=== PATIENT | female | born 1935 | race Caucasian/White ===

== ENCOUNTER → 2017-10-25 | Outpatient (CLI) | payer OTHER | END | disposition home or self-care (01) | LOC: C.PATHSPEC 17:16 → C.LABSPEC 17:16 | PROVIDERS: ATTEND Physician Assistant | DX: L82.0 Inflamed seborrheic keratosis (principal) ==

== ENCOUNTER 2024-12-10 16:42 | Inpatient (IN) ==
--- NOTE | 2024-12-10 17:04 | Emergency Department Note ---
Impression & Plan Dyspnea, Hypoxia, Pneumonia, Hyponatremia ED Provider Note ED Provider Note NAME: ANGELA HEALY AGE:89 SEX: Female : 1935 ARRIVES VIA: EMS INFORMANT: Patient ED PROVIDER(s): Liss Romero DO CHIEF COMPLAINT: Referred by PCP, hypoxia, shortness of breath HPI: This is an 89-year-old female referred to the emergency department after she presented to her primary care's office due to concern for 2 weeks of increased shortness of breath, cough, intermittent fevers. Patient states she did intermittently have fevers as high as 102 F at home but has not had fevers in several days. Patient states she has had a decreased appetite but no overt vomiting. She states her cough has been productive of a green sputum predominantly, no hemoptysis. She states she has had mild diarrhea, no melena or hematochezia. She denies any, abdominal pain. Patient states she feels more fatigued. Her shortness of breath is worse with any movement. She has had accompanying nasal congestion, rhinorrhea, and sore throat. She states she is also had chest heaviness and pressure additionally. Family member recently ill with a cold and she thought she was ill from that individual. Patient given neb in the office but states it didn't help her symptoms. PAST MEDICAL HISTORY:See Below PAST SURGICAL HISTORY:See Below FAMILY HISTORY:See Below SOCIAL HISTORY:See Below HOME MEDICATIONS:See Below ALLERGIES:See Below VITALS:See Below PHYSICAL EXAMINATION: GENERAL: alert, unwell appearing, well nourished, no distress, non-toxic EYE EXAM: normal conjunctiva, PERRL and EOM's grossly intact OROPHARYNX: no exudate, no erythema, lips, buccal mucosa, and tongue normal and mucous membranes are moist NECK: supple, no nuchal rigidity, no adenopathy, non-tender LUNGS: Decreased bilaterally to auscultation. Normal chest wall mechanics, no w/r/r, tachypnea and increased work of breathing HEART: no murmurs, S1 normal and S2 normal ABDOMEN: abdomen soft, non-tender, normo-active bowel sounds, no masses, no rebound or guarding. SKIN: no rashes, petechiae, orbruising UPPER EXTREMITIES: upper extremities are grossly normal. FROM, nml pulses b/l. LOWER EXTREMITIES: No pitting edema. FROM, nml pulses b/l. NEURO EXAM: Normal sensorium, cranial nerves II-XII grossly intact, normal speech, no facial droop,nogross weakness of arms, no gross weakness of legs. Gross sensation intact. No ataxia. Vital Signs: reviewed and remarkable Differential Diagnosis: pneumonia, bronchitis, COPD/Asthma exacerbation, pneumothorax, pulmonary embolism, congestive heart failure, acute coronary syndrome, as well as others were considered MEDICAL DECISION MAKING: This is an 89 yo female sent from PCP office due to concern for 2 weeks of URI symptoms, increased SOB, and sats in the 80s. She was tachypneic, hypoxic, and ill appearing an arrival. Labs drawn and sent, IV established, EKG and CXR performed and interpreted at bedside, and patient placed on telemetry. She was placed on an oxy mask and sats improved to the low 90's on 8 lpm and patient reported feeling improved. Patient started on IVF and after review of cxr given IV rocephin and oral azithro added for CAP. WBC of 18 but negative procal/lactic. Cultures sent a precaution. No hx of pna, asthma/copd, or aspiration. Viral swab negative additionally despite recent sick contact. Case discussed with the hospitalist team for additional evaluation and mgmt. VS stable throughout. SHe was changed to maintenance rate IVF after 1st bolus. She was noted to have hyponatremia additionally, likely secondary to infection as well as dehydration and decreased intake. Consultation(s): 1844: Discussed with Dr. Reveles, [facility] hospitalist team, for additional evaluation and management. ER Treatment Provided: See below Diagnostics Interpreted By Me: -ECG: Normal sinus 97, left axis, normal intervals, no acute ST/T wave changes -Cardiac Monitoring: An order was placed for continuous cardiac monitoring. The monitor shows a rate of 88 with normal sinus rhythm. -Laboratory studies: As stated above and show below. -Imaging studies: cxr: no cm, RLL infiltrate noted, no wide mediastinum, no pneumothorax Triage Nursing Note Reviewed Prior/Outside Records Reviewed Past Med/Surg History Problem List (Updated 12/10/24 @ 22:47 by Varsha Lu PA-C) Dehydration Hypokalemia Hyponatremia (Acute) Pneumonia (Acute) Hypoxia (Acute) Dyspnea (Acute) Acute respiratory failure with hypoxia Abnormal thyroid function test Rectal bleeding Routine health maintenance Encounter for screening for osteoporosis Screening for deficiency anemia Screening for diabetes mellitus BCC (basal cell carcinoma of skin) (Acute) Cataract (Acute) Cervical spondylosis (Acute) Cyst of kidney, acquired (Acute) Hemorrhoids (Acute) Hyperlipidemia (Acute) Lentigines (Acute) Neoplasm of uncertain behavior of skin (Acute) Osteopenia (Acute) Radiculopathy (Acute) Seborrheic keratosis (Acute) Medical History History of SCC (squamous cell carcinoma) of skin History of basal cell carcinoma Rectal hemorrhage Surgical History History of hysterectomy History of cataract surgery Family History Family/Other No problems noted. Son Family history of melanoma Denies family history of Ovarian cancer Prostate cancer Myocardial infarction Breast cancer Colorectal cancer Social History Smoking Status: Never smoker Tobacco Type: Cigarettes Age Started Using Tobacco: 16; Age Quit Using Tobacco: 49; packs per day: 0.5; Cigarettes Per Day: 10; Second Hand Exposure: No; Do You Dip or Chew Tobacco: No; Hx Alcohol Use: Yes Alcohol type: wine Alcohol Intake Frequency: 2-3 x/Week Hx Substance Use: No Preferred Language: Ecuadorean Communication Ability: Effective Visual Impairment: Limited Hearing Ability: Normal Probation Worker Required: No Beliefs That Will Affect Care: None marital status: / Current Living Situation: Family Current Living Situation Comment: lives w/ son & daughter in law current occupational status: retired How many Children do You have: 2 Other Information That Helps Us Care for You: No Feels Safe at Home: Yes Safety Concerns: Feels Safe At This Time Childhood Exposure to Second-Hand Smoke: No Diet: regular caffeine: Yes during the past year weight has: remained stable Dental Care, Regularly: Yes Physical Activity Frequency: Does not Exercise Seatbelt Use: always Sunscreen Use: Yes (Sometimes) Do you think of yourself as: straight/heterosexual Sexual Activity: has been sexually active, but not for at least 12 months Gender Identity: Female Assistive Devices: Cane Allergies Allergies Allergy/AdvReac Type Severity Reaction Status Date / Time diphenhydramine Allergy Unknown HIVES Verified 12/10/24 14:26 Home Meds Home Medications Medication Instructions Recorded Confirmed vitamin E (dl, acetate) 90 mg (200 90 mg PO DAILY 12/10/24 12/10/24 unit) capsule Previous Rx's Medication Instructions Recorded ascorbic acid (vitamin C) 500 mg 500 mg PO DAILY #30 caps 07/16/19 capsule calcium 600 mg (as carbonate)-vit 1 tab PO BID #60 tabs 07/16/19 D3 20 mcg (800 unit) chewable tablet (Caltrate plus D) cholecalciferol (vitamin D3) 50 2,000 units PO DAILY #30 tabs 07/16/19 mcg (2,000 unit) tablet coenzyme Q10 10 mg capsule 10 mg PO DAILY #90 caps 07/16/19 [id number] C-Mn 1 cap PO BID #60 caps 07/16/19 capsule (Glucosamine-Chondroitin Complex capsule) magnesium oxide 400 mg PO DAILY #30 caps 07/16/19 mecobalamin (vitamin B12) 1,000 1,000 mcg sublingual DAILY #30 tabs 07/16/19 mcg disintegrating tablet,sublingual red yeast rice 600 mg capsule 1,200 mg (2 x 600 mg) PO DAILY #30 07/16/19 caps selenium 200 mcg tablet 200 mcg PO DAILY #30 tabs 07/16/19 albuterol sulfate 90 mcg/actuation 2 puff inhalation Q6H PRN 12/10/24 aerosol inhaler shortness of breath or wheezing #8.5 grams azithromycin 250 mg tablet See Rx Instructions PO .COMPLEX #6 12/10/24 tabs prednisone 10 mg tablet 40 mg (4 x 10 mg) PO DAILY 7 days 12/10/24 #28 tabs Results & Data (ED) Vital Signs Vital Signs - 24 hr 12/10/24 18:00 12/10/24 18:03 12/10/24 18:03 Pulse Rate Pulse Rate [Left] 90 Pulse Rate from SpO2 Sensor Respiratory Rate 19 Blood Pressure 143/92 H 143/92 H Blood Pressure [Left Arm] 143/92 H Blood Pressure Mean 112 112 Blood Pressure Mean [Left Arm] 109 Pulse Oximetry 97 Oxygen Delivery Method Oxymask Oxygen Flow Rate 7 12/10/24 18:12 12/10/24 18:30 12/10/24 18:30 Pulse Rate 88 Pulse Rate [Left] Pulse Rate from SpO2 Sensor 88 Respiratory Rate 30 H Blood Pressure 143/85 H 143/85 H Blood Pressure [Left Arm] Blood Pressure Mean 128 128 Blood Pressure Mean [Left Arm] Pulse Oximetry 95 Oxygen Delivery Method Oxygen Flow Rate 12/10/24 18:30 12/10/24 19:00 12/10/24 19:30 Pulse Rate 85 80 Pulse Rate [Left] 79 Pulse Rate from SpO2 Sensor 80 Respiratory Rate 18 24 24 Blood Pressure 143/85 H 148/83 H Blood Pressure [Left Arm] 147/85 H Blood Pressure Mean 104 108 Blood Pressure Mean [Left Arm] 105 Pulse Oximetry 94 93 93 Oxygen Delivery Method Oxymask Room Air Oxygen Flow Rate 7 Laboratory Data 12/11/24 05:45 12/11/24 05:45 Lab Results 12/10/24 12/10/24 12/10/24 Range/Units 16:53 17:00 17:15 WBC 18.81 H (4.8-10.8) K/ul RBC 4.18 L (4.20-5.40) M/uL Hgb 13.0 (12.0-16.0) g/dl Hct 36.0 L (37.0-47.0) % MCV 86.1 (80.0-100.0) fL MCH 31.1 (25.0-34.0) pg MCHC 36.1 H (32.0-36.0) g/dL RDW Std Deviation 41.1 (36.4-46.3) fL RDW Coeff of Spencer 13.1 (11.5-14.5) % Plt Count 372 (130-400) K/uL MPV 8.8 L (9.4-12.4) fL Immature Gran % (Auto) 1.0 % Neut % (Auto) 87.0 % Lymph % (Auto) 4.4 % Cocke % (Auto) 7.5 % Eos % (Auto) 0.0 % Baso % (Auto) 0.1 % Neut # (Auto) 16.36 H (1.40-6.50) K/uL Lymph # (Auto) 0.83 L (1.20-3.40) K/uL Cocke # (Auto) 1.42 H (0.11-0.59) K/uL Eos # (Auto) 0.00 (0.00-0.50) K/uL Baso # (Auto) 0.02 (0.00-0.20) K/uL Immature Gran # (Auto) 0.18 (0.01-0.20) K/uL VBG pH 7.41 (7.36-7.41) VBG pCO2 43 (38-50) mmHg VBG pO2 24 mmHg VBG HCO3 27 mmol/L VBG O2 Saturation < 60.0 % VBG Base Excess 2.2 mEq/L Sodium 126 L (136-145) mmol/L Potassium 3.4 L (3.5-5.1) mmol/L Chloride 87 L (98-107) mmol/L Carbon Dioxide 28 (21-32) mmol/L Anion Gap 11 (3-11) BUN 13 (6-23) mg/dl Creatinine 0.59 L (0.6-1.2) mg/dl Est Cr Clr Drug Dosing 58.7 ml/min eGFR 86.09 BUN/Creatinine Ratio 22.0 H (10-20) Glucose 117 H (70-99(Fasting)) mg/dl Osmolality 260 L (280-300) mOsm/kg Lactate 0.8 (0.4-2.0) mmol/L Calcium 9.2 (8.6-10.3) mg/dl Magnesium 1.8 (1.7-2.4) mg/dl Total Bilirubin 1.0 (0.2-1.0) mg/dl Direct Bilirubin 0.3 H (0-0.2) mg/dl AST 32 (13-39) U/L ALT 37 (7-52) U/L Alkaline Phosphatase 110 H (34-104) U/L Troponin I High Sens 13.3 (0-14) pg/ml Total Protein 7.7 (6.0-8.3) gm/dl Albumin 3.2 L (3.4-5.0) gm/dl Procalcitonin 0.20 (0-0.5) ng/ml TSH 0.231 L (0.300-4.500) uIu/ml Free T4 2.48 H (0.61-1.60) ng/dl Urine Color Urine Appearance (Clear) Urine pH (4.5-7.5) Ur Specific Tabor (1.000-1.030) Urine Protein (Negative) Urine Glucose (UA) (Negative) Urine Ketones (Negative) Urine Blood (Negative) Urine Nitrite (Negative) Urine Bilirubin (Negative) Urine Urobilinogen (Negative) Ur Leukocyte Esterase (Negative) Urine WBC (Auto) (0-5) /hpf Urine RBC (Auto) (0-2) /hpf U Hyaline Cast (Auto) (0-2) /lpf U Epithel Cells (Auto) (0-2) /hpf Urine Bacteria (Auto) (None Seen) Urine Osmolality (500-800) mOsm/kg Ur Random Sodium mmol/L Urine Comment Nasal Screen MRSA (PCR) (Negative) Adenovirus (PCR) Not Detected (NotDetected) B. pertussis DNA (PCR) Not Detected (NotDetected) B.parapertussis DNA PCR Not Detected (NotDetected) C. pneumoniae DNA (PCR) Not Detected (NotDetected) Coronavirus OC43 (PCR) Not Detected (NotDetected) Coronavirus HKU1 (PCR) Not Detected (NotDetected) Coronavirus 229E (PCR) Not Detected (NotDetected) SARS-CoV-2 (PCR) Not Detected (NotDetected) Coronavirus NL63 (PCR) Not Detected (NotDetected) Human Metapneumovir PCR Not Detected (NotDetected) Influenza Type A (PCR) Not Detected (NotDetected) Influenza Type B (PCR) Not Detected (NotDetected) M. pneumoniae (PCR) Not Detected (NotDetected) Parainfluenza 1 (PCR) Not Detected (NotDetected) Parainfluenza 2 (PCR) Not Detected (NotDetected) Parainfluenza 3 (PCR) Not Detected (NotDetected) Parainfluenza 4 (PCR) Not Detected (NotDetected) RSV (PCR) Not Detected (NotDetected) Entero/Rhino (PCR) Not Detected (NotDetected) 12/10/24 12/10/24 Range/Units 19:36 19:40 WBC (4.8-10.8) K/ul RBC (4.20-5.40) M/uL Hgb (12.0-16.0) g/dl Hct (37.0-47.0) % MCV (80.0-100.0) fL MCH (25.0-34.0) pg MCHC (32.0-36.0) g/dL RDW Std Deviation (36.4-46.3) fL RDW Coeff of Spencer (11.5-14.5) % Plt Count (130-400) K/uL MPV (9.4-12.4) fL Immature Gran % (Auto) % Neut % (Auto) % Lymph % (Auto) % Cocke % (Auto) % Eos % (Auto) % Baso % (Auto) % Neut # (Auto) (1.40-6.50) K/uL Lymph # (Auto) (1.20-3.40) K/uL Cocke # (Auto) (0.11-0.59) K/uL Eos # (Auto) (0.00-0.50) K/uL Baso # (Auto) (0.00-0.20) K/uL Immature Gran # (Auto) (0.01-0.20) K/uL VBG pH (7.36-7.41) VBG pCO2 (38-50) mmHg VBG pO2 mmHg VBG HCO3 mmol/L VBG O2 Saturation % VBG Base Excess mEq/L Sodium (136-145) mmol/L Potassium (3.5-5.1) mmol/L Chloride (98-107) mmol/L Carbon Dioxide (21-32) mmol/L Anion Gap (3-11) BUN (6-23) mg/dl Creatinine (0.6-1.2) mg/dl Est Cr Clr Drug Dosing ml/min eGFR BUN/Creatinine Ratio (10-20) Glucose (70-99(Fasting)) mg/dl Osmolality (280-300) mOsm/kg Lactate (0.4-2.0) mmol/L Calcium (8.6-10.3) mg/dl Magnesium (1.7-2.4) mg/dl Total Bilirubin (0.2-1.0) mg/dl Direct Bilirubin (0-0.2) mg/dl AST (13-39) U/L ALT (7-52) U/L Alkaline Phosphatase (34-104) U/L Troponin I High Sens (0-14) pg/ml Total Protein (6.0-8.3) gm/dl Albumin (3.4-5.0) gm/dl Procalcitonin (0-0.5) ng/ml TSH (0.300-4.500) uIu/ml Free T4 (0.61-1.60) ng/dl Urine Color Yellow Urine Appearance Clear (Clear) Urine pH 6.0 (4.5-7.5) Ur Specific Tabor 1.006 (1.000-1.030) Urine Protein Negative (Negative) Urine Glucose (UA) Negative (Negative) Urine Ketones Trace H (Negative) Urine Blood 1+ H (Negative) Urine Nitrite Negative (Negative) Urine Bilirubin Negative (Negative) Urine Urobilinogen Negative (Negative) Ur Leukocyte Esterase Trace H (Negative) Urine WBC (Auto) 0-5 (0-5) /hpf Urine RBC (Auto) 0-2 (0-2) /hpf U Hyaline Cast (Auto) 0-2 (0-2) /lpf U Epithel Cells (Auto) 0-2 (0-2) /hpf Urine Bacteria (Auto) None Seen (None Seen) Urine Osmolality 155 L (500-800) mOsm/kg Ur Random Sodium 11 mmol/L Urine Comment Nasal Screen MRSA (PCR) Negative (Negative) Adenovirus (PCR) (NotDetected) B. pertussis DNA (PCR) (NotDetected) B.parapertussis DNA PCR (NotDetected) C. pneumoniae DNA (PCR) (NotDetected) Coronavirus OC43 (PCR) (NotDetected) Coronavirus HKU1 (PCR) (NotDetected) Coronavirus 229E (PCR) (NotDetected) SARS-CoV-2 (PCR) (NotDetected) Coronavirus NL63 (PCR) (NotDetected) Human Metapneumovir PCR (NotDetected) Influenza Type A (PCR) (NotDetected) Influenza Type B (PCR) (NotDetected) M. pneumoniae (PCR) (NotDetected) Parainfluenza 1 (PCR) (NotDetected) Parainfluenza 2 (PCR) (NotDetected) Parainfluenza 3 (PCR) (NotDetected) Parainfluenza 4 (PCR) (NotDetected) RSV (PCR) (NotDetected) Entero/Rhino (PCR) (NotDetected) Administered Medications Enoxaparin Sodium (Enoxaparin Inj 40 Mg/0.4 Ml Syr) 40 mg SQ Q24H IVAN Stop: 01/09/25 21:01 Last Admin: 12/10/24 21:33 Dose: 40 mg Documented By: TYLER Guaifenesin (Guaifenesin 600 Mg Tabcr) 1,200 mg PO Q12 IVAN Stop: 01/09/25 21:01 Last Admin: 12/11/24 09:11 Dose: 1,200 mg Documented By: Admin: 12/10/24 21:33 Dose: 1,200 mg Documented By: TYLER Ceftriaxone Sodium (Rocephin) 2,000 mg in 50 mls @ 100 mls/hr IV Q24H IVAN Stop: 12/16/24 16:59 Last Admin: 12/11/24 17:45 Dose: 100 mls/hr Documented By: ODALIS Azithromycin (Zithromax) 500 mg in 255 mls @ 127.5 mls/hr IV Q24H IVAN Stop: 12/16/24 16:59 Last Admin: 12/11/24 17:45 Dose: 127.5 mls/hr Documented By: ODALIS Discontinued Medications Azithromycin (Azithromycin 250 Mg Tab) 500 mg PO NOW ONE Stop: 12/10/24 18:12 Last Admin: 12/10/24 18:13 Dose: 500 mg Documented By: JOAQUINA Sodium Chloride (Nss) 1,000 mls @ 999 mls/hr IV .Q1H1M IVAN Stop: 12/10/24 18:00 Last Infusion: 12/10/24 18:14 Dose: Infused Documented By: Admin: 12/10/24 17:06 Dose: 999 mls/hr Documented By: JOAQUINA Ceftriaxone Sodium (Rocephin) 2,000 mg in 50 mls @ 100 mls/hr IV NOW STA Stop: 12/10/24 17:50 Last Infusion: 12/10/24 18:08 Dose: Infused Documented By: Admin: 12/10/24 17:26 Dose: 100 mls/hr Documented By: JOAQUINA Sodium Chloride (Nss) 1,000 mls @ 125 mls/hr IV .Q8H IVAN Stop: 12/11/24 11:44 Last Admin: 12/11/24 03:44 Dose: 125 mls/hr Documented By: Infusion: 12/11/24 03:44 Dose: Infused Documented By: Admin: 12/10/24 20:06 Dose: 125 mls/hr Documented By: THOR Potassium Chloride (K Chris / Wtr) 10 meq in 100 mls @ 100 mls/hr IV Q1H IVAN Stop: 12/10/24 22:44 Last Infusion: 12/10/24 23:35 Dose: Infused Documented By: Admin: 12/10/24 22:33 Dose: 100 mls/hr Documented By: Infusion: 12/10/24 22:32 Dose: Infused Documented By: Admin: 12/10/24 21:32 Dose: 100 mls/hr Documented By: Infusion: 12/10/24 21:32 Dose: Infused Documented By: Admin: 12/10/24 20:06 Dose: 100 mls/hr Documented By: THOR Magnesium Sulfate/Dextrose (Magnesium Sulfate / D5w) 1 gm in 100 mls @ 50 mls/hr IV ONE ONE Stop: 12/10/24 21:33 Last Infusion: 12/10/24 22:07 Dose: Infused Documented By: Admin: 12/10/24 20:06 Dose: 50 mls/hr Documented By: THOR Sodium Chloride (Nss) 1,000 mls @ 75 mls/hr IV .[id number] IVAN Stop: 12/11/24 17:26 Last Admin: 12/11/24 14:16 Dose: 75 mls/hr Documented By: ODALIS Discharge Plan Visit Data Chief Complaint: Shortness of Breath/Dyspnea Stated Complaint: SOB, COUGH ED Provider: Liss Romero Discharge Problem: Dyspnea, Hypoxia, Pneumonia, Hyponatremia Patient Disposition: Admitted As Inpatient Condition: Fair Discharge Instructions Interventions: ED Discharge Assessment Last Done: 12/10/24 20:34
[2024-12-10] MEDS: SODIUM CHLORIDE 0.9% 1,000 ML IV SCH ×2 (17:06→20:06)
[2024-12-10 17:09] LABS: Base Excess VBG 2.2 mEq/L; HCO3 VBG 27 mmol/L; Oxygen Saturation VBG < 60.0 %; PCO2 VBG 43 mmHg (38-50); PO2 VBG 24 mmHg; pH VBG 7.41 (7.36-7.41)
[2024-12-10 17:15] LABS: Basophils # (auto) 0.02 K/uL (0.00-0.20); Basophils % (auto) 0.1 %; Immature Granulocytes # (auto) 0.18 K/uL (0.01-0.20); Lymphocytes # (auto) 0.83 K/uL (1.20-3.40); Lymphocytes % (auto) 4.4 %; Mean Corpuscular Hemoglobin 31.1 pg (25.0-34.0); Mean Corpuscular Hgb Conc 36.1 g/dL (32.0-36.0); Mean Corpuscular Volume 86.1 fL (80.0-100.0); Mean Platelet Volume 8.8 fL (9.4-12.4); Monocytes # (auto) 1.42 K/uL (0.11-0.59); Monocytes % (auto) 7.5 %; Neutrophils # (auto) 16.36 K/uL (1.40-6.50); Platelet Count 372 K/uL (130-400); RDW Coefficient of Variation 13.1 % (11.5-14.5); RDW Standard Deviation 41.1 fL (36.4-46.3); Red Blood Count 4.18 M/uL (4.20-5.40); White Blood Count 18.81 K/ul (4.8-10.8)
[2024-12-10] MEDS: cefTRIAXone SODIUM 2,000 MG/50 ML BAG IV STA (17:26)
[2024-12-10 17:33] LABS: Albumin Level 3.2 gm/dl (3.4-5.0); Bilirubin Direct 0.3 mg/dl (0-0.2); Calcium 9.2 mg/dl (8.6-10.3); Creatinine Clr Calc Pharmacy 58.7 ml/min; Magnesium 1.8 mg/dl (1.7-2.4); Potassium 3.4 mmol/L (3.5-5.1); Total Protein 7.7 gm/dl (6.0-8.3)
[2024-12-10 17:38] LABS: Troponin I High Sensitivity 13.3 pg/ml (0-14)
[2024-12-10 18:10] LABS: Adenovirus PCR Not Detected (NotDetected); Bordetella parapertussis PCR Not Detected (NotDetected); Bordetella pertussis PCR Not Detected (NotDetected); Chlamydia pneumoniae PCR Not Detected (NotDetected); Coronavirus 229E PCR Not Detected (NotDetected); Coronavirus CoV-2 (COVID19)PCR Not Detected (NotDetected); Coronavirus HKU1 PCR Not Detected (NotDetected); Coronavirus NL63 PCR Not Detected (NotDetected); Coronavirus OC43PCR Not Detected (NotDetected); Human Metapneumovirus PCR Not Detected (NotDetected); Influenza A PCR Not Detected (NotDetected); Influenza B PCR Not Detected (NotDetected); Mycoplasma pneumoniae PCR Not Detected (NotDetected); Parainfluenza Virus 1 PCR Not Detected (NotDetected); Parainfluenza Virus 2 PCR Not Detected (NotDetected); Parainfluenza Virus 3 PCR Not Detected (NotDetected); Parainfluenza Virus 4 PCR Not Detected (NotDetected); Respiratory Syncytial VirusPCR Not Detected (NotDetected); Rhinovirus/Enterovirus PCR Not Detected (NotDetected)
[2024-12-10] MEDS: AZITHROMYCIN 250 MG TAB PO ONE (18:13)
--- NOTE | 2024-12-10 19:12 | History & Physical Report ---
Date of Service December 10, 2024 Assessment & Plan (1) Pneumonia: (2) Hypoxia: (3) Hyponatremia: (4) Hypokalemia: (5) Dehydration: Plan Patient is an 89-year-old female without significant past medical history. Patient presented with, dyspnea, stool, weakness fevers, diarrhea and was found to have right lower lobe pneumonia and to be 85% on room air. She presented to her PCP earlier today found oxygen level to be mid 80s on room air and then referred her to the ED. She is being admitted for IV antibiotics, intermittent hypoxia. She is also found to have significant electrolyte abnormalities, K+ 3.4, mag 1.8, NA 126. #PNA/hypoxia - CXR showed RLL and suspected LLL PNA. Patient on 7 L oxy mask at time of admission, RR stable (24), able to talk, not in significant distress. Significant leukocytosis with white count 18.81 and neutrophil predominance, however not septic as vital signs relatively stable, procalcitonin 0.20, lactate 0.8. Bio fire negative. VBG WNL. - continue Rocephin + azithromycin IV - MRSA swab ordered, will add MRSA coverage if positive - blood cultures and sputum cultures obtained prior to abx - incentive spirometry and flutter valve - Tessalon Perles and Tylenol as needed - scheduled Mucinex - oxygen prn for O2 <94%, wean as tolerated - monitor on tele #Electrolyte abnormalities/dehydration - appears dry at bedside, with poor PO and diarrhea x several weeks. K+ 3.4, magnesium 1.8, NA 126. Urine osmole, serum osmole, urine NA ordered - TSH ordered - nss @ 125/ml x2l - 3 bags k rider - 1 bag IV mag + continue daily mag supplement - promote oral hydration - repeat BMP 0000 12/11 - trend BMP and mag with am labs #weakness suspect 2/2 infection and electrolyte abnormalities above - tsh ordered Aspiration and fall precautions PT/OT ordered VTE ppx: Lovenox 40mg q24h Dispo: PCU Admission and Anticipated Discharge Date Admission Date: 12/10/24 History of Present Illness Chief Complaint: dyspnea Primary Care Provider: Beatris Sanches MD Patient is an 89-year-old female without significant past medical history. Patient presented with, dyspnea, stool, weakness fevers, diarrhea and was found to have right lower lobe pneumonia and to be 85% on room air. She presented to her PCP earlier today found oxygen level to be mid 80s on room air and then referred her to the ED. She is being admitted for IV antibiotics, intermittent hypoxia. She is also found to have significant electrolyte abnormalities, K+ 3.4, mag 1.8, NA 126. Patient seen at bedside with her son present. She lives with her son at home. She stated over the holidays "" she traveled to [place] with her family for her grandsons graduation when her [id number] was sick with a cough and patient began with symptoms shortly after. She has had 2 weeks of fatigue, weakness, dyspnea, feeling like something heavy is sitting on her chest, green sputum producing cough. She does not use any oxygen at baseline, denies any past history of asthma or COPD. Her son reported that he took her temperature several days, and it was 104 F. Patient states she has also had diarrhea off and on for several weeks but she thinks it secondary to eating a bunch of small tangerines. She denies any hematochezia or melena, she does have noted history of rectal bleeding. Patient states she also has had poor p.o. intake for several weeks due to feeling sick and food just not tasting well. She denies any significant smoking history. She does not use any oxygen at [facility]. Overall medications consist of supplements, which she has not taken in several days due to feeling sick. Her PCP prescribed an albuterol inhaler, prednisone, and azithromycin which she has not yet picked up. After discussion with patient and her son at bedside, she wishes to be DNR/DNI. Allergies Allergy/AdvReac Type Severity Reaction Status Date / Time diphenhydramine Allergy Unknown HIVES Verified 12/10/24 14:26 Home Medications Medication Instructions Recorded Confirmed Type ascorbic acid (vitamin C) 500 mg 500 mg PO DAILY #30 caps 07/16/19 12/10/24 Rx capsule calcium 600 mg (as carbonate)-vit 1 tab PO BID #60 tabs 07/16/19 12/10/24 Rx D3 20 mcg (800 unit) chewable tablet (Caltrate plus D) cholecalciferol (vitamin D3) 50 2,000 units PO DAILY #30 tabs 07/16/19 12/10/24 Rx mcg (2,000 unit) tablet coenzyme Q10 10 mg capsule 10 mg PO DAILY #90 caps 07/16/19 12/10/24 Rx xxsvomsjtry-vhvlckqyt-ocx C-Mn 1 cap PO BID #60 caps 07/16/19 12/10/24 Rx capsule (Glucosamine-Chondroitin Complex capsule) magnesium oxide 400 mg PO DAILY #30 caps 07/16/19 12/10/24 Rx mecobalamin (vitamin B12) 1,000 1,000 mcg sublingual DAILY #30 tabs 07/16/19 12/10/24 Rx mcg disintegrating tablet,sublingual red yeast rice 600 mg capsule 1,200 mg (2 x 600 mg) PO DAILY #30 07/16/19 12/10/24 Rx caps selenium 200 mcg tablet 200 mcg PO DAILY #30 tabs 07/16/19 12/10/24 Rx albuterol sulfate 90 mcg/actuation 2 puff inhalation Q6H PRN 12/10/24 12/10/24 Rx aerosol inhaler shortness of breath or wheezing #8.5 grams azithromycin 250 mg tablet See Rx Instructions PO .COMPLEX #6 12/10/24 12/10/24 Rx tabs prednisone 10 mg tablet 40 mg (4 x 10 mg) PO DAILY 7 days 12/10/24 12/10/24 Rx #28 tabs vitamin E (dl, acetate) 90 mg (200 90 mg PO DAILY 12/10/24 12/10/24 History unit) capsule Past Med/Surg History Problem List (Updated 12/10/24 @ 22:47 by Varsha Lu PA-C) Dehydration Hypokalemia Hyponatremia (Acute) Pneumonia (Acute) Hypoxia (Acute) Dyspnea (Acute) Acute respiratory failure with hypoxia Abnormal thyroid function test Rectal bleeding Routine health maintenance Encounter for screening for osteoporosis Screening for deficiency anemia Screening for diabetes mellitus BCC (basal cell carcinoma of skin) (Acute) Cataract (Acute) Cervical spondylosis (Acute) Cyst of kidney, acquired (Acute) Hemorrhoids (Acute) Hyperlipidemia (Acute) Lentigines (Acute) Neoplasm of uncertain behavior of skin (Acute) Osteopenia (Acute) Radiculopathy (Acute) Seborrheic keratosis (Acute) Medical History History of SCC (squamous cell carcinoma) of skin History of basal cell carcinoma Rectal hemorrhage Surgical History History of hysterectomy History of cataract surgery Family History Family/Other No problems noted. Son Family history of melanoma Denies family history of Ovarian cancer Prostate cancer Myocardial infarction Breast cancer Colorectal cancer Social History Smoking Status: Never smoker Tobacco Type: Cigarettes Age Started Using Tobacco: 16; Age Quit Using Tobacco: 49; packs per day: 0.5; Cigarettes Per Day: 10; Second Hand Exposure: No; Do You Dip or Chew Tobacco: No; Hx Alcohol Use: Yes Alcohol type: wine Alcohol Intake Frequency: 2-3 x/Week Hx Substance Use: No Preferred Language: Malaysian Communication Ability: Effective Visual Impairment: Limited Hearing Ability: Normal Trapeze Artist Required: No Beliefs That Will Affect Care: None marital status: / Current Living Situation: Family Current Living Situation Comment: lives w/ son & daughter in law current occupational status: retired How many Children do You have: 2 Other Information That Helps Us Care for You: No Feels Safe at Home: Yes Safety Concerns: Feels Safe At This Time Childhood Exposure to Second-Hand Smoke: No Diet: regular caffeine: Yes during the past year weight has: remained stable Dental Care, Regularly: Yes Physical Activity Frequency: Does not Exercise Seatbelt Use: always Sunscreen Use: Yes (Sometimes) Do you think of yourself as: straight/heterosexual Sexual Activity: has been sexually active, but not for at least 12 months Gender Identity: Female Assistive Devices: Cane and Glasses Review of Systems Review of Systems: see HPI Physical Exam Physical Exam: The patient is awake, alert and oriented 3, well developed and well nourished, normocephalic and atraumatic, in no acute distress. Non-toxic appearing. HEENT- EOMI, mucous membranes dry. Hearing grossly intact. Heart-normal S1 and S2. No murmurs, rubs or gallops. Lungs- Decreased breath sounds right lower lobe, no wheezing or other adventitious sounds noted. no respiratory distress, no accessory muscle use. On 7L oxy mask, able to talk, RR 24. Abdomen-normal bowel sounds and soft. No ascites noted. Non-tender. Extremities- no clubbing, cyanosis, or edema. Psychiatric-normal affect. Results & Data Results & Data Vital Signs (Past 12 Hours) Vital Signs Temp Pulse Pulse Resp BP BP Pulse Ox 12/10/24 19:00 79 24 147/85 H 93 12/10/24 18:30 85 18 143/85 H 94 12/10/24 18:30 143/85 H 12/10/24 18:30 143/85 H 12/10/24 18:12 88 30 H 95 12/10/24 18:03 143/92 H 12/10/24 18:03 143/92 H 12/10/24 18:00 90 19 143/92 H 97 12/10/24 17:57 91 H 22 143/92 H 91 12/10/24 17:33 22 85 L 12/10/24 17:31 95 H 12/10/24 17:30 86 20 154/89 H 93 12/10/24 17:15 86 20 154/89 H 93 12/10/24 17:14 86 20 154/89 H 93 12/10/24 16:59 100 H 22 91 12/10/24 16:51 85 L 12/10/24 16:34 37.1 C 93 H 20 154/89 H 91 O2 Del Method O2 Flow Rate 12/10/24 19:00 Oxymask 7 12/10/24 18:30 12/10/24 18:30 12/10/24 18:30 12/10/24 18:12 12/10/24 18:03 12/10/24 18:03 12/10/24 18:00 Oxymask 7 12/10/24 17:57 12/10/24 17:33 12/10/24 17:31 12/10/24 17:30 Oxymask 8 12/10/24 17:15 Room Air 12/10/24 17:14 Oxymask 8 12/10/24 16:59 Oxymask 8 12/10/24 16:51 Room Air, Oxymask 0 12/10/24 16:34 Oxymask 8 Laboratory Results reviewed CBC, CMP, BioFire, VBG, magnesium, troponin Diagnostic Findings reviewed CXR Medications Administered ED1L NSS bolus, Rocephin 2G IV, azithromycin 500 Mg p.o. ECG Additional Comments: sinus tachycardia, rate 97 QTc 436 Code Status & VTE Plan Code Status DNR/DNI VTE Prophylaxis Plan VTE Prophylaxis will be ordered: Yes Supervising Physician Co-Signing Physician Notes I personally saw and examined the patient. I independently reviewed the labs, EKG, imaging, problem list, medication list, past medical history and family history. I verified all alexis points and agree with Varsha Lu PA-C with the following exceptions and/or additions: 89 year old female presents to the ER with shortness of breath and cough O/E Ill appearing, HS RRR, no murmurs, Chest bibasal R > L rhonchi, no wheezing, Abdo SNT A/P CAP - Ceftriaxone + azithromycin, no concern for aspiration from history, incentive spirometer, flutter valve, guaifenesin Hypovolemic hyponatremia - should improve with normal saline overnight, if not suspect consider SIADH as diagnosis Abnormal thyroid function tests - suggestive of possible hyperthyroidism however recommend these are repeated following her current illness to see if they normalize without intervention PG Care Time/CCT Total # of Minutes Spent Total Time Spent with Patient: Total time spent is greater than 50% in coordination of care (as documented) at patient's floor/unit and/or counseling patient: Coding Level of Care Code 02136 INT INP/OBS CARE 375MIN Diagnoses Pneumonia J18.9 Hypoxia R09.02 Hyponatremia E87.1 Hypokalemia E87.6 Dehydration E86.0
--- NOTE | 2024-12-10 19:15 | XRay Report ---
EXAM: XR chest 1V portable CLINICAL HISTORY: Sepsis TECHNIQUE: An X-ray image of the chest is obtained in AP projection. COMPARISON: No prior studies are available for comparison. FINDINGS: Pulmonary Parenchyma: Right basal lung patchy opacity and Suspected retrocardiac left lower lung zone opacity, suggesting pulmonary infiltrates Increased lung markings. The remaining lungs are clear with no evidence of consolidation, collapse, or focal opacities. No pulmonary nodules are identified. Blunting of both costophrenic angles, suggesting small effusion Heart and Mediastinum: Apparent mild cardiomegaly. No mediastinal widening or masses. No hilar or mediastinal lymphadenopathy. Bony Thorax: Bony thorax appears intact without fractures or deformities. Soft Tissues: Soft tissues overlying the chest wall are unremarkable. IMPRESSION: 1. Right basal lung patchy opacity and suspected retrocardiac left lower lung zone opacity, suggesting pulmonary infiltrates 2. Bilateral small pleural effusion 3. Apparent mild cardiomegaly with mild vascular congestion. 4. Correlate clinically Electronically signed by Isrrael Bruno 12-10-2024 7:15 PM
[2024-12-10 19:55] LABS: Thyroid Stimulating Hormone 0.231 uIu/ml (0.300-4.500)
[2024-12-10 20:00] LABS: Appearance Urine Clear (Clear); Bacteria Urine Automated None Seen (None Seen); Bilirubin Urine Negative (Negative); Blood Urine 1+ (Negative); Cast Urine Automated 0-2 /lpf (0-2); Color Urine Yellow; Epithelial Cell Urine Auto 0-2 /hpf (0-2); Glucose Urine UA Negative (Negative); Ketones Urine Trace (Negative); Leukocyte Esterase Urine Trace (Negative); Nitrite Urine Negative (Negative); Protein Urine Negative (Negative); RBC Urine Automated 0-2 /hpf (0-2); Specific Gravity Urine 1.006 (1.000-1.030); Urobilinogen Urine Negative (Negative); WBC Urine Automated 0-5 /hpf (0-5)
[2024-12-10] MEDS: MAGNESIUM SULFATE / D5W 1 GM/100 ML BAG IV ONE (20:06)
[2024-12-10] MEDS: POTASSIUM CHLORIDE / WTR 10 MEQ/100 ML PLCT IV SCH (20:06)
[2024-12-10 20:31] LABS: T4 Free Thyroxine 2.48 ng/dl (0.61-1.60)
[2024-12-10] MEDS ORDERED: DOCUSATE SODIUM 100 MG CAP PO PRN (21:02)
[2024-12-10] MEDS ORDERED: ONDANSETRON INJ 2 MG/ML 2 ML VIAL IV PRN (21:02)
[2024-12-10] MEDS ORDERED: BENZONATATE 100 MG CAPSULE PO PRN (21:02)
[2024-12-10] MEDS ORDERED: ACETAMINOPHEN 325 MG TAB PO PRN (21:02)
[2024-12-10] MEDS ORDERED: MELATONIN 3 MG TAB PO PRN (21:02)
[2024-12-10] MEDS: ENOXAPARIN INJ 40 MG/0.4 ML SYR SQ SCH (21:33)
[2024-12-10] MEDS: guaiFENesin 600 MG TABCR PO SCH (21:33)
[2024-12-11 00:49] LABS: Calcium 8.4 mg/dl (8.6-10.3); Creatinine Clr Calc Pharmacy 71.1 ml/min; Potassium 4.1 mmol/L (3.5-5.1)
[2024-12-11 06:13] LABS: Hematocrit (blood only) 33.1 % (37.0-47.0); Mean Corpuscular Hemoglobin 31.5 pg (25.0-34.0); Mean Corpuscular Hgb Conc 36.3 g/dL (32.0-36.0); Mean Corpuscular Volume 86.9 fL (80.0-100.0); Mean Platelet Volume 8.8 fL (9.4-12.4); Platelet Count 329 K/uL (130-400); RDW Coefficient of Variation 12.7 % (11.5-14.5); RDW Standard Deviation 40.4 fL (36.4-46.3); Red Blood Count 3.81 M/uL (4.20-5.40); White Blood Count 11.63 K/ul (4.8-10.8)
[2024-12-11 06:32] LABS: Albumin Globulin Ratio 0.7 (0.9-2); Albumin Level 2.5 gm/dl (3.4-5.0); BUN Creatinine Ratio 29.4 (10-20); Bilirubin,Total 0.4 mg/dl (0.2-1.0); Calcium 8.1 mg/dl (8.6-10.3); Globulin 3.6 gm/dl (2.5-4.0); Potassium 3.9 mmol/L (3.5-5.1); Total Protein 6.1 gm/dl (6.0-8.3)
--- NOTE | 2024-12-11 06:44 | Electrocardiogram Report ---
Test Reason : Blood Pressure : */* mmHG Vent. Rate : 97 BPM Atrial Rate : 97 BPM P-R Int : 160 ms QRS Dur : 86 ms QT Int : 344 ms P-R-T Axes : 30 -33 39 degrees QTcB Int : 436 ms Normal sinus rhythm Left axis deviation Cannot rule out Anterior infarct , age undetermined Abnormal ECG When compared with ECG of 30-Dec-2003 02:39, Nonspecific T wave abnormality no longer evident in Inferior leads Nonspecific T wave abnormality no longer evident in Lateral leads Confirmed by Chris Degroot ([id number]) on 12/11/2024 6:44:23 AM Referred By: REFERRED SELF Confirmed By: Chris Degroot
[2024-12-11 06:45] LABS: Basophils # (auto) 0.01 K/uL (0.00-0.20); Basophils % (auto) 0.1 %; Immature Granulocytes # (auto) 0.13 K/uL (0.01-0.20); Immature Granulocytes % (auto) 1.1 %; Lymphocytes % (auto) 4.3 %; Monocytes # (auto) 0.18 K/uL (0.11-0.59); Monocytes % (auto) 1.5 %; Neutrophils # (auto) 10.81 K/uL (1.40-6.50); RBC Morphology Unremarkable
[2024-12-11] MEDS ORDERED: ACETAMINOPHEN 500 MG TAB PO PRN (07:27)
[2024-12-11] MEDS ORDERED: MAGNESIUM OXIDE 400 MG TAB PO SCH (09:00)
--- NOTE | 2024-12-11 09:59 | Hospitalist Progress Note ---
Date of Service December 11, 2024 Assessment & Plan (1) Acute respiratory failure with hypoxia: (2) Pneumonia: (3) Hyponatremia: (4) Hypokalemia: Plan Patient is an 89-year-old female without significant past medical history. Patient presented with, dyspnea, stool, weakness fevers, diarrhea and was found to have right lower lobe pneumonia and to be 85% on room air. She presented to her PCP earlier today found oxygen level to be mid 80s on room air and then referred her to the ED. She is being admitted for IV antibiotics, intermittent hypoxia. She is also found to have significant electrolyte abnormalities, K+ 3.4, mag 1.8, NA 126. #Acute hypoxic respiratory failure #PNA - CXR showed RLL and suspected LLL PNA. Patient on 7 L oxy mask at time of admission, RR stable (24), able to talk, not in significant distress. Significant leukocytosis with white count 18.81 and neutrophil predominance, however not septic as vital signs relatively stable, procalcitonin 0.20, lactate 0.8. Bio fire negative. VBG WNL. - continue Rocephin + azithromycin IV - MRSA negative - Follow-up blood cultures -Sputum cultures from admission: Preliminary growing haemophilus influenza - incentive spirometry and flutter valve - Tessalon Perles and Tylenol as needed - scheduled Mucinex - oxygen prn for O2 <94%, wean as tolerated - monitor on tele - Check 2D echo - White count improving, oxygen requirements improving - PT/OT # Hyponatremia #Hypokalemia Likely from poor oral intake in setting of pneumonia Sodium levels are improving with gentle IV fluid hydration Appetite is improved Potassium improved with replacement Monitor renal function and electrolytes #Abnormal thyroid function test TSH is 0.231 Free T4 is 2.48 These tests are unreliable and setting where patient is acutely ill This will need to be repeated through PCP in 4 weeks time as outpatient CODE STATUS: DNR/DNI DVT prophylaxis: Lovenox 40 mg subcutaneous daily Disposition: Discharge planning based on PT/OT recommendations and clinical improvement, final culture reports: Likely in the next 48 to 72 hours Care plan discussed with patient, nursing staff Patient's son Amauri Cage ([phone]) updated with patient's permission Admission and Anticipated Discharge Date Admission Date: December 10, 2024 Subjective Patient seen and examined H&P reviewed Labs reviewed Radiology reviewed Telemetry reviewed: Sinus tachycardia Patient reports feeling much better today, her breathing has improved and she is down to 4 L of oxygen via nasal cannula. She still reports a cough with yellow- green sputum. Denies any chest pain and does report improvement in shortness of breath. Denies any nausea, vomiting, diarrhea or abdominal pain. She reports feeling weak and tired. Social history: She lives at home with her son. She is independent of ADLs. Physical Exam Physical Exam: General: No acute distress Psych: Awake and alert, oriented to place and person HEENT: Anicteric sclera, moist oral mucosa CVS: Regular rate and rhythm Lungs: Bilateral air entry with coarse breath sounds at the bases, no wheezing noted Abdomen: Soft, nontender, no rebound, no guarding Ext: No lower extremity edema, no calf tenderness Neuro: No focal motor deficits noted Results & Data Results & Data Vital Signs (Past 12 Hours) Vital Signs Temp Pulse Pulse Resp BP Pulse Ox O2 Del Method 12/11/24 08:10 36.4 C L 92 H 18 121/72 95 Nasal Cannula 12/11/24 03:44 36.8 C 80 18 130/90 95 Oxymask 12/11/24 00:05 36.5 C 75 20 122/77 97 Oxymask 12/10/24 23:00 73 12/10/24 22:08 Oxymask O2 Flow Rate 12/11/24 08:10 5 12/11/24 03:44 7 12/11/24 00:05 6 12/10/24 23:00 12/10/24 22:08 7 Laboratory Results 12/10/24 17:09 Gram Stain - Final Sputum, Expectorated Sputum Culture - Preliminary Haemo.influ betalactamase neg 12/10/24 17:15 Aerobic Blood Culture - Pending Blood Anaerobic Blood Culture - Pending 12/10/24 16:53 Aerobic Blood Culture - Pending Blood Anaerobic Blood Culture - Pending 12/11/24 12/11/24 12/10/24 05:45 00:17 19:40 WBC 11.63 H RBC 3.81 L Hgb 12.0 Hct 33.1 L MCV 86.9 MCH 31.5 MCHC 36.3 H RDW Std Deviation 40.4 RDW Coeff of Spencer 12.7 Plt Count 329 MPV 8.8 L Immature Gran % (Auto) 1.1 Neut % (Auto) 93.0 Lymph % (Auto) 4.3 Gem % (Auto) 1.5 Eos % (Auto) 0.0 Baso % (Auto) 0.1 Neut # (Auto) 10.81 H Lymph # (Auto) 0.50 L Gem # (Auto) 0.18 Eos # (Auto) 0.00 Baso # (Auto) 0.01 Immature Gran # (Auto) 0.13 RBC Morphology Unremarkable VBG pH VBG pCO2 VBG pO2 VBG HCO3 VBG O2 Saturation VBG Base Excess Sodium 131 L 129 L Potassium 3.9 4.1 D Chloride 98 96 L Carbon Dioxide 24 25 Anion Gap 9 8 BUN 15 12 Creatinine 0.51 L 0.48 L Est Cr Clr Drug Dosing 68.0 71.1 eGFR 89.17 90.48 BUN/Creatinine Ratio 29.4 H 25.0 H Glucose 138 H 140 H Osmolality Lactate Calcium 8.1 L 8.4 L Magnesium 2.0 Total Bilirubin 0.4 D Direct Bilirubin AST 21 ALT 26 Alkaline Phosphatase 85 Troponin I High Sens Total Protein 6.1 D Albumin 2.5 L Globulin 3.6 Albumin/Globulin Ratio 0.7 L Procalcitonin TSH Free T4 Urine Color Yellow Urine Appearance Clear Urine pH 6.0 Ur Specific [place] 1.006 Urine Protein Negative Urine Glucose (UA) Negative Urine Ketones Trace H Urine Blood 1+ H Urine Nitrite Negative Urine Bilirubin Negative Urine Urobilinogen Negative Ur Leukocyte Esterase Trace H Urine WBC (Auto) 0-5 Urine RBC (Auto) 0-2 U Hyaline Cast (Auto) 0-2 U Epithel Cells (Auto) 0-2 Urine Bacteria (Auto) None Seen Urine Osmolality 155 L Ur Random Sodium 11 Urine Comment Nasal Screen MRSA (PCR) Adenovirus (PCR) B. pertussis DNA (PCR) B.parapertussis DNA PCR C. pneumoniae DNA (PCR) Coronavirus OC43 (PCR) Coronavirus HKU1 (PCR) Coronavirus 229E (PCR) SARS-CoV-2 (PCR) Coronavirus NL63 (PCR) Human Metapneumovir PCR Influenza Type A (PCR) Influenza Type B (PCR) M. pneumoniae (PCR) Parainfluenza 1 (PCR) Parainfluenza 2 (PCR) Parainfluenza 3 (PCR) Parainfluenza 4 (PCR) RSV (PCR) Entero/Rhino (PCR) 12/10/24 12/10/24 12/10/24 19:36 17:15 17:00 WBC RBC Hgb Hct MCV MCH MCHC RDW Std Deviation RDW Coeff of [place] Plt Count MPV Immature Gran % (Auto) Neut % (Auto) Lymph % (Auto) Gem % (Auto) Eos % (Auto) Baso % (Auto) Neut # (Auto) Lymph # (Auto) Gem # (Auto) Eos # (Auto) Baso # (Auto) Immature Gran # (Auto) RBC Morphology VBG pH VBG pCO2 VBG pO2 VBG HCO3 VBG O2 Saturation VBG Base Excess Sodium Potassium Chloride Carbon Dioxide Anion Gap BUN Creatinine Est Cr Clr Drug Dosing eGFR BUN/Creatinine Ratio Glucose Osmolality 260 L Lactate 0.8 Calcium Magnesium Total Bilirubin Direct Bilirubin AST ALT Alkaline Phosphatase Troponin I High Sens Total Protein Albumin Globulin Albumin/Globulin Ratio Procalcitonin TSH Free T4 Urine Color Urine Appearance Urine pH Ur Specific [place] Urine Protein Urine Glucose (UA) Urine Ketones Urine Blood Urine Nitrite Urine Bilirubin Urine Urobilinogen Ur Leukocyte Esterase Urine WBC (Auto) Urine RBC (Auto) U Hyaline Cast (Auto) U Epithel Cells (Auto) Urine Bacteria (Auto) Urine Osmolality Ur Random Sodium Urine Comment Nasal Screen MRSA (PCR) Negative Adenovirus (PCR) Not Detected B. pertussis DNA (PCR) Not Detected B.parapertussis DNA PCR Not Detected C. pneumoniae DNA (PCR) Not Detected Coronavirus OC43 (PCR) Not Detected Coronavirus HKU1 (PCR) Not Detected Coronavirus 229E (PCR) Not Detected SARS-CoV-2 (PCR) Not Detected Coronavirus NL63 (PCR) Not Detected Human Metapneumovir PCR Not Detected Influenza Type A (PCR) Not Detected Influenza Type B (PCR) Not Detected M. pneumoniae (PCR) Not Detected Parainfluenza 1 (PCR) Not Detected Parainfluenza 2 (PCR) Not Detected Parainfluenza 3 (PCR) Not Detected Parainfluenza 4 (PCR) Not Detected RSV (PCR) Not Detected Entero/Rhino (PCR) Not Detected 12/10/24 16:53 WBC 18.81 H RBC 4.18 L Hgb 13.0 Hct 36.0 L MCV 86.1 MCH 31.1 MCHC 36.1 H RDW Std Deviation 41.1 RDW Coeff of [place] 13.1 Plt Count 372 MPV 8.8 L Immature Gran % (Auto) 1.0 Neut % (Auto) 87.0 Lymph % (Auto) 4.4 Gem % (Auto) 7.5 Eos % (Auto) 0.0 Baso % (Auto) 0.1 Neut # (Auto) 16.36 H Lymph # (Auto) 0.83 L Gem # (Auto) 1.42 H Eos # (Auto) 0.00 Baso # (Auto) 0.02 Immature Gran # (Auto) 0.18 RBC Morphology VBG pH 7.41 VBG pCO2 43 VBG pO2 24 VBG HCO3 27 VBG O2 Saturation < 60.0 VBG Base Excess 2.2 Sodium 126 L Potassium 3.4 L Chloride 87 L Carbon Dioxide 28 Anion Gap 11 BUN 13 Creatinine 0.59 L Est Cr Clr Drug Dosing 58.7 eGFR 86.09 BUN/Creatinine Ratio 22.0 H Glucose 117 H Osmolality Lactate Calcium 9.2 Magnesium 1.8 Total Bilirubin 1.0 Direct Bilirubin 0.3 H AST 32 ALT 37 Alkaline Phosphatase 110 H Troponin I High Sens 13.3 Total Protein 7.7 Albumin 3.2 L Globulin Albumin/Globulin Ratio Procalcitonin 0.20 TSH 0.231 L Free T4 2.48 H Urine Color Urine Appearance Urine pH Ur Specific [place] Urine Protein Urine Glucose (UA) Urine Ketones Urine Blood Urine Nitrite Urine Bilirubin Urine Urobilinogen Ur Leukocyte Esterase Urine WBC (Auto) Urine RBC (Auto) U Hyaline Cast (Auto) U Epithel Cells (Auto) Urine Bacteria (Auto) Urine Osmolality Ur Random Sodium Urine Comment Nasal Screen MRSA (PCR) Adenovirus (PCR) B. pertussis DNA (PCR) B.parapertussis DNA PCR C. pneumoniae DNA (PCR) Coronavirus OC43 (PCR) Coronavirus HKU1 (PCR) Coronavirus 229E (PCR) SARS-CoV-2 (PCR) Coronavirus NL63 (PCR) Human Metapneumovir PCR Influenza Type A (PCR) Influenza Type B (PCR) M. pneumoniae (PCR) Parainfluenza 1 (PCR) Parainfluenza 2 (PCR) Parainfluenza 3 (PCR) Parainfluenza 4 (PCR) RSV (PCR) Entero/Rhino (PCR) Diagnostic Findings Chest X-Ray 12/10/24 16:59 EXAM: XR chest 1V portable CLINICAL HISTORY: Sepsis TECHNIQUE: An X-ray image of the chest is obtained in AP projection. COMPARISON: No prior studies are available for comparison. FINDINGS: Pulmonary Parenchyma: Right basal lung patchy opacity and Suspected retrocardiac left lower lung zone opacity, suggesting pulmonary infiltrates Increased lung markings. The remaining lungs are clear with no evidence of consolidation, collapse, or focal opacities. No pulmonary nodules are identified. Blunting of both costophrenic angles, suggesting small effusion Heart and Mediastinum: Apparent mild cardiomegaly. No mediastinal widening or masses. No hilar or mediastinal lymphadenopathy. Bony Thorax: Bony thorax appears intact without fractures or deformities. Soft Tissues: Soft tissues overlying the chest wall are unremarkable. IMPRESSION: 1. Right basal lung patchy opacity and suspected retrocardiac left lower lung zone opacity, suggesting pulmonary infiltrates 2. Bilateral small pleural effusion 3. Apparent mild cardiomegaly with mild vascular congestion. 4. Correlate clinically Electronically signed by Isrrael Bruno 12-10-2024 7:15 PM PG Care Time/CCT Total # of Minutes Spent Total Time Spent with Patient: Total time spent is greater than 50% in coordination of care (as documented) at patient's floor/unit and/or counseling patient: Coding Level of Care Code 00208 SUB INP/OBS CARE 3/50MIN Diagnoses Acute respiratory failure with hypoxia J96.01 Pneumonia J18.9 Hyponatremia E87.1 Hypokalemia E87.6
[2024-12-11] MEDS: SODIUM CHLORIDE 0.9% 1,000 ML IV SCH (14:16)
[2024-12-11] MEDS: AZITHROMYCIN 500 MG/255 ML BAG IV SCH (17:45)
[2024-12-11] MEDS: cefTRIAXone SODIUM 2,000 MG/50 ML BAG IV SCH (17:45)
--- NOTE | 2024-12-11 18:21 | XCELERA ---
[id number]
[2024-12-12 06:18] LABS: Basophils # (auto) 0.02 K/uL (0.00-0.20); Basophils % (auto) 0.1 %; Hematocrit (blood only) 34.4 % (37.0-47.0); Hemoglobin 12.2 g/dl (12.0-16.0); Immature Granulocytes # (auto) 0.19 K/uL (0.01-0.20); Immature Granulocytes % (auto) 1.3 %; Lymphocytes # (auto) 0.83 K/uL (1.20-3.40); Lymphocytes % (auto) 5.8 %; Mean Corpuscular Hemoglobin 31.1 pg (25.0-34.0); Mean Corpuscular Hgb Conc 35.5 g/dL (32.0-36.0); Mean Corpuscular Volume 87.8 fL (80.0-100.0); Mean Platelet Volume 8.9 fL (9.4-12.4); Monocytes # (auto) 1.17 K/uL (0.11-0.59); Monocytes % (auto) 8.2 %; Neutrophils # (auto) 11.98 K/uL (1.40-6.50); Neutrophils % (auto) 84.6 %; Platelet Count 371 K/uL (130-400); RDW Coefficient of Variation 13.2 % (11.5-14.5); RDW Standard Deviation 42.3 fL (36.4-46.3); Red Blood Count 3.92 M/uL (4.20-5.40); White Blood Count 14.19 K/ul (4.8-10.8)
[2024-12-12 06:34] LABS: Albumin Globulin Ratio 0.7 (0.9-2); Albumin Level 2.6 gm/dl (3.4-5.0); BUN Creatinine Ratio 30.2 (10-20); Bilirubin,Total 0.4 mg/dl (0.2-1.0); Calcium 8.7 mg/dl (8.6-10.3); Creatinine Clr Calc Pharmacy 54.6 ml/min; Globulin 3.8 gm/dl (2.5-4.0); Potassium 3.7 mmol/L (3.5-5.1); Total Protein 6.4 gm/dl (6.0-8.3)
--- NOTE | 2024-12-12 15:23 | Hospitalist Progress Note ---
Date of Service December 12, 2024 Assessment & Plan (1) Acute respiratory failure with hypoxia: (2) Pneumonia: (3) Hyponatremia: (4) Hypokalemia: Plan Patient is an 89-year-old female without significant past medical history. Patient presented with, dyspnea, stool, weakness fevers, diarrhea and was found to have right lower lobe pneumonia and to be 85% on room air. She presented to her PCP earlier today found oxygen level to be mid 80s on room air and then referred her to the ED. She is being admitted for IV antibiotics, intermittent hypoxia. She is also found to have significant electrolyte abnormalities, K+ 3.4, mag 1.8, NA 126. Haemophilus influenza pneumonia: Patient presents to the hospital with worsening shortness of breath Chest x-ray showed evidence of lower lobe pneumonia Cultures growing haemophilus influenza, full characterization and sensitivity pending Will continue IV ceftriaxone and azithromycin #Acute hypoxic respiratory failure -Secondary to haemophilus influenza pneumonia - Patient on 7 L oxy mask at time of admission, -Currently on room air - incentive spirometry and flutter valve - Tessalon Perles and Tylenol as needed - scheduled Mucinex - oxygen prn for O2 <94%, wean as tolerated - # Hyponatremia #Hypokalemia Replace electrolytes #Abnormal thyroid function test TSH is 0.231 Free T4 is 2.48 These tests are unreliable and setting where patient is acutely ill This will need to be repeated through PCP in 4 weeks time as outpatient CODE STATUS: DNR/DNI DVT prophylaxis: Lovenox 40 mg subcutaneous daily Disposition: Continue hospitalization, discharge pending clinical improvement Admission and Anticipated Discharge Date Admission Date: December 10, 2024 Subjective Patient seen and examined, says her shortness of breath is much improved Review of Systems Review of Systems: All systems reviewed are negative, apart from the ones contained in the history. Physical Exam Physical Exam: The patient is awake, alert and oriented 3, well developed and well nourished, normocephalic and atraumatic, lying in bed and in no acute distress. HEENT--PERRL, EOMI, mucous membranes and oropharynx mildly dry Neck--supple. No JVD. No bruits. Thyroid normal, trachea midline, no adenopathy. Heart--normal S1 and S2. No murmurs, rubs or gallops. Lungs--clear bilaterally, no respiratory distress, no accessory muscle use. Abdomen--normal bowel sounds and soft. Extremities--no cyanosis or clubbing. No edema. Dermatologic--normal skin turgor, normal color, no abnormal lymph nodes, no rash. Neurologic--cranial nerves II through XII grossly intact. Rheumatologic--normal range of motion. Psychiatric--normal affect. Results & Data Results & Data Vital Signs (Past 12 Hours) Vital Signs Temp Pulse Pulse Resp BP Pulse Ox O2 Del Method 12/12/24 12:01 97.9 F 89 18 147/88 H 91 Room Air 12/12/24 08:00 98.2 F 92 H 19 112/71 94 Nasal Cannula 12/12/24 07:53 High Flow Nasal Cannula 12/12/24 07:38 65 O2 Flow Rate 12/12/24 12:01 12/12/24 08:00 4 12/12/24 07:53 4 12/12/24 07:38 PG Care Time/CCT Total # of Minutes Spent Total Time Spent with Patient: Total time spent is greater than 50% in coordination of care (as documented) at patient's floor/unit and/or counseling patient: Coding Level of Care Code 03953 SUB INP/OBS CARE 2/35MIN Diagnoses Acute respiratory failure with hypoxia J96.01 Pneumonia J18.9 Hyponatremia E87.1 Hypokalemia E87.6 Time Spent (min) 35
[2024-12-13 06:16] LABS: Hematocrit (blood only) 29.6 % (37.0-47.0); Hemoglobin 10.5 g/dl (12.0-16.0); Red Blood Count 3.34 M/uL (4.20-5.40); White Blood Count 10.78 K/ul (4.8-10.8)
[2024-12-13 06:17] LABS: Mean Corpuscular Hemoglobin 31.4 pg (25.0-34.0); Mean Corpuscular Hgb Conc 35.5 g/dL (32.0-36.0); Mean Corpuscular Volume 88.6 fL (80.0-100.0); Mean Platelet Volume 8.9 fL (9.4-12.4); Platelet Count 281 K/uL (130-400); RDW Coefficient of Variation 13.2 % (11.5-14.5); RDW Standard Deviation 42.9 fL (36.4-46.3)
[2024-12-13 06:31] LABS: BUN Creatinine Ratio 24.6 (10-20); Calcium 8.1 mg/dl (8.6-10.3); Creatinine Clr Calc Pharmacy 56.8 ml/min
--- NOTE | 2024-12-13 10:54 | Hospitalist Progress Note ---
Date of Service December 13, 2024 Assessment & Plan (1) Acute respiratory failure with hypoxia: (2) Pneumonia: (3) Hyponatremia: (4) Hypokalemia: Plan Patient is an 89-year-old female without significant past medical history. Patient presented with, dyspnea, stool, weakness fevers, diarrhea and was found to have right lower lobe pneumonia and to be 85% on room air. She presented to her PCP earlier today found oxygen level to be mid 80s on room air and then referred her to the ED. She is being admitted for IV antibiotics, intermittent hypoxia. She is also found to have significant electrolyte abnormalities, K+ 3.4, mag 1.8, NA 126. Haemophilus influenza pneumonia: Patient presents to the hospital with worsening shortness of breath Chest x-ray showed evidence of lower lobe pneumonia Cultures growing haemophilus influenza, no sensitivities to follow, however, they are usually sensitive to ceftriaxone Will continue IV ceftriaxone, stop azithromycin #Acute hypoxic respiratory failure -Secondary to haemophilus influenza pneumonia - Patient on 7 L oxy mask at time of admission, -Currently on room air - incentive spirometry and flutter valve - Tessalon Perles and Tylenol as needed - scheduled Mucinex - oxygen prn for O2 <94%, wean as tolerated - # Hyponatremia #Hypokalemia Replace electrolytes #Abnormal thyroid function test TSH is 0.231 Free T4 is 2.48 These tests are unreliable and setting where patient is acutely ill This will need to be repeated through PCP in 4 weeks time as outpatient CODE STATUS: DNR/DNI DVT prophylaxis: Lovenox 40 mg subcutaneous daily Disposition: Continue hospitalization, discharge in the next 24 hrs Admission and Anticipated Discharge Date Admission Date: December 10, 2024 Subjective Patient seen and examined, says her shortness of breath is much improved Review of Systems Review of Systems: All systems reviewed are negative, apart from the ones contained in the history. Physical Exam Physical Exam: The patient is awake, alert and oriented 3, well developed and well nourished, normocephalic and atraumatic, lying in bed and in no acute distress. HEENT--PERRL, EOMI, mucous membranes and oropharynx mildly dry Neck--supple. No JVD. No bruits. Thyroid normal, trachea midline, no adenopathy. Heart--normal S1 and S2. No murmurs, rubs or gallops. Lungs--clear bilaterally, no respiratory distress, no accessory muscle use. Abdomen--normal bowel sounds and soft. Extremities--no cyanosis or clubbing. No edema. Dermatologic--normal skin turgor, normal color, no abnormal lymph nodes, no rash. Neurologic--cranial nerves II through XII grossly intact. Rheumatologic--normal range of motion. Psychiatric--normal affect. Results & Data Results & Data Vital Signs (Past 12 Hours) Vital Signs Temp Pulse Pulse Resp BP Pulse Ox O2 Del Method 12/13/24 10:37 97.9 F 70 18 124/72 94 Nasal Cannula 12/13/24 08:00 63 12/13/24 08:00 High Flow Nasal Cannula 12/13/24 07:26 97.9 F 69 20 127/79 96 High Flow Nasal Cannula 12/13/24 03:08 98.1 F 69 18 113/75 96 High Flow Nasal Cannula 12/12/24 23:25 98.1 F 83 18 104/67 92 High Flow Nasal Cannula 12/12/24 23:04 66 O2 Flow Rate 12/13/24 10:37 4 12/13/24 08:00 12/13/24 08:00 4 12/13/24 07:26 4 12/13/24 03:08 3 12/12/24 23:25 3 12/12/24 23:04 PG Care Time/CCT Total # of Minutes Spent Total Time Spent with Patient: Total time spent is greater than 50% in coordination of care (as documented) at patient's floor/unit and/or counseling patient: Coding Level of Care Code 59857 SUB INP/OBS CARE 2/35MIN Diagnoses Acute respiratory failure with hypoxia J96.01 Pneumonia J18.9 Hyponatremia E87.1 Hypokalemia E87.6 Time Spent (min) 35
[2024-12-14 09:00] VITALS: BP 107/68; RESP 18; TEMP 98.1
--- NOTE | 2024-12-14 10:31 | Discharge Summary ---
Date of Service December 14, 2024 Admission HPI Per Admitting Provider Patient is an 89-year-old female without significant past medical history. Patient presented with, dyspnea, stool, weakness fevers, diarrhea and was found to have right lower lobe pneumonia and to be 85% on room air. She presented to her PCP earlier today found oxygen level to be mid 80s on room air and then referred her to the ED. She is being admitted for IV antibiotics, intermittent hypoxia. She is also found to have significant electrolyte abnormalities, K+ 3.4, mag 1.8, NA 126. Patient seen at bedside with her son present. She lives with her son at home. She stated over the holidays "" she traveled to [place] with her family for her grandsons graduation when her [id number] was sick with a cough and patient began with symptoms shortly after. She has had 2 weeks of fatigue, weakness, dyspnea, feeling like something heavy is sitting on her chest, green sputum producing cough. She does not use any oxygen at baseline, denies any past history of asthma or COPD. Her son reported that he took her temperature several days, and it was 104 F. Patient states she has also had diarrhea off and on for several weeks but she thinks it secondary to eating a bunch of small tangerines. She denies any hematochezia or melena, she does have noted history of rectal bleeding. Patient states she also has had poor p.o. intake for several weeks due to feeling sick and food just not tasting well. She denies any significant smoking history. She does not use any oxygen at baseline. Overall medications consist of supplements, which she has not taken in several days due to feeling sick. Her PCP prescribed an albuterol inhaler, prednisone, and azithromycin which she has not yet picked up. After discussion with patient and her son at bedside, she wishes to be DNR/DNI. Admission Exam (Per Admitting) Constitutional The patient is awake, alert and oriented 3, well developed and well nourished, normocephalic and atraumatic, lying in bed and in no acute distress. HEENT--PERRL, EOMI, mucous membranes and oropharynx mildly dry Neck--supple. No JVD. No bruits. Thyroid normal, trachea midline, no sonia opathy. Heart--normal S1 and S2. No murmurs, rubs or gallops. Lungs--clear bilaterally, no respiratory distress, no accessory muscle use. Abdomen--normal bowel sounds and soft. Extremities--no cyanosis or clubbing. No edema. Dermatologic--normal skin turgor, normal color, no abnormal lymph nodes, no rash. Neurologic--cranial nerves II through XII grossly intact. Rheumatologic--normal range of motion. Psychiatric--normal affect. Discharge Data Consultations 12/10/24 18:46 ED Decision to Admit Stat Hospital Course (1) Acute respiratory failure with hypoxia: (2) Pneumonia: (3) Hyponatremia: (4) Hypokalemia: Plan Patient is an 89-year-old female without significant past medical history. Patient presented with, dyspnea, stool, weakness fevers, diarrhea and was found to have right lower lobe pneumonia and to be 85% on room air. She presented to her PCP earlier today found oxygen level to be mid 80s on room air and then referred her to the ED. She is being admitted for IV antibiotics, intermittent hypoxia. She is also found to have significant electrolyte abnormalities, K+ 3.4, mag 1.8, NA 126. Haemophilus influenza pneumonia: Patient presents to the hospital with worsening shortness of breath Chest x-ray showed evidence of lower lobe pneumonia Cultures growing haemophilus influenza, no sensitivities to follow, however, they are usually sensitive to ceftriaxone Was on IV ceftriaxone, and azithromycin Will discharge on PO Augmentin 500mg for 5 days #Acute hypoxic respiratory failure -Secondary to haemophilus influenza pneumonia - Patient on 7 L oxy mask at time of admission, -Currently on room air - incentive spirometry and flutter valve - Tessalon Perles and Tylenol as needed - scheduled Mucinex - oxygen prn for O2 <94%, wean as tolerated - # Hyponatremia #Hypokalemia Replace electrolytes #Abnormal thyroid function test TSH is 0.231 Free T4 is 2.48 These tests are unreliable and setting where patient is acutely ill This will need to be repeated through PCP in 4 weeks time as outpatient CODE STATUS: DNR/DNI DVT prophylaxis: Lovenox 40 mg subcutaneous daily Disposition: d/c home Coding Level of Care Code 11012 INP/OBS DISCH >30 MIN Diagnoses Acute respiratory failure with hypoxia J96.01 Pneumonia J18.9 Hyponatremia E87.1 Hypokalemia E87.6 Time Spent (min) 35
[2024-12-14 10:35] VITALS: PULSE 89; O2SAT 92
== END 2024-12-14 11:44 | disposition home or self-care (01) | DRG 193 ==
LOC: ED 16:42 → 2E 19:47 → SUATTDRO 19:47 → 2E 20:34
DX: Z66 Do not resuscitate; E87.1 Hypo-osmolality and hyponatremia; E86.0 Dehydration; J14 Pneumonia due to Hemophilus influenzae; E87.6 Hypokalemia; J96.01 Acute respiratory failure with hypoxia